=== PATIENT | male | born 1995 | race Caucasian/White ===

== ENCOUNTER 2018-01-16 10:37 | Emergency (ER) | payer SELFPAY ==
[2018-01-16] MEDS ORDERED: ONDANSETRON 4 MG TAB.RAPDIS PO ONE (10:51)
[2018-01-16] MEDS ORDERED: CEPHALEXIN 500 MG CAPSULE PO ONE (10:51)
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
[2018-01-16 14:07] VITALS: BP 124/72
== END 2018-01-16 14:06 | disposition home or self-care (01) ==
LOC: ER 10:37
DX: S02.31XA Fracture of orbital floor, right side, initial encounter for closed fracture (principal); Y04.2XXA Assault by strike against or bumped into by another person, initial encounter; Y93.89 Activity, other specified; L03.317 Cellulitis of buttock; Z91.030 Bee allergy status; Z91.048 Other nonmedicinal substance allergy status; F17.200 Nicotine dependence, unspecified, uncomplicated
CPT/HCPCS: 99284; 70450; 70486; S0119

== ENCOUNTER 2018-07-16 14:55 | Emergency (ER) | payer SELFPAY ==
[2018-07-16 15:02] VITALS: BP 140/86
--- NOTE | 2018-07-16 15:36 | RADIOLOGY REPORT (SQ) ---
EXAM DESCRIPTION: HAND LEFT 3 VIEWS COMPLETED DATE/TIME: 07/16/2018 3:26 pm REASON FOR STUDY: laceration with chainsaw COMPARISON: None. EXAM PARAMETERS: NUMBER OF VIEWS: Three views. TECHNIQUE: AP, lateral and oblique radiographic images acquired of the left hand. LIMITATIONS: None. FINDINGS: MINERALIZATION: Normal. BONES: No acute fracture or dislocation. No worrisome bone lesions. JOINTS: No effusions. SOFT TISSUES: No soft tissue swelling. No foreign body. OTHER: No other significant finding. IMPRESSION: NEGATIVE STUDY OF THE LEFT HAND. NO RADIOGRAPHIC EVIDENCE OF ACUTE INJURY. TECHNICAL DOCUMENTATION: JOB ID: [id number] [employer]- All Rights Reserved Reading location - IP/workstation name: [email or web address]
--- NOTE | 2018-07-16 15:42 | ER Document Report ---
HPI - HPI Pain Level: 5 Past Medical History - Social History Family History: Reviewed & Not Pertinent, CAD - grandmother, Other - brother with asthma. no hx sz. Renal/ Medical History: Denies: Hx Peritoneal Dialysis Psychiatric Medical History: Reports: Hx Attention Deficit Hyperactivity Disorder, Hx Bipolar Disorder, Hx Depression - Immunizations Immunizations up to date: Yes Hx Diphtheria, Pertussis, Tetanus Vaccination: Yes Vertical Provider Document - INFECTION CONTROL TRAVEL OUTSIDE OF THE [place]. IN LAST 30 DAYS: Yes Course - Vital Signs Vital signs: Temp Pulse Resp BP Pulse Ox 98.2 F 92 18 140/86 H 98 07/16/18 15:00 07/16/18 15:00 07/16/18 15:00 07/16/18 15:00 07/16/18 15:00 Discharge - Discharge Clinical Impression: Extensor tendon laceration of finger with open wound Condition: Good
[2018-07-16] MEDS ORDERED: DIPH/PERTUSS(ACELL)/TETANUS VAC/PF 0.5 ML SYR (>=10YO) IM ONE (16:04)
[2018-07-16] MEDS ORDERED: LIDOCAINE 1% INJ-PF (10 MG/ML) 30 ML SDV INJ ONE (16:07)
[2018-07-16] MEDS ORDERED: AMPICILLIN SOD/SULBACTAM 3 GM VIAL IV ONE (16:09)
--- NOTE | 2018-07-16 16:14 | ER Document Report ---
ED Medical Screen (RME) - General Chief Complaint: Laceration Stated Complaint: LEFT HAND LACERATION Time Seen by Provider: 07/16/18 15:42 Mode of Arrival: Ambulatory Information source: Patient Notes: 23-year-old male his left hand over the index MCP joint. He is unable to straighten the finger. It looks like he cut in to the tendon and possible joint capsule. I have notified Dr. Ding who will come see the patient and he wants me to give him Unasyn IV and I will keep the patient n.p.o. TRAVEL OUTSIDE OF THE [place]. IN LAST 30 DAYS: Yes - Related Data Allergies/Adverse Reactions: nickel [Nickel] Allergy (Unknown, Verified 07/16/18 14:59) bee stings Allergy (Intermediate, Uncoded 07/16/18 14:59) swelling Past Medical History - Social History Chew tobacco use (# tins/day): No Frequency of alcohol use: None Drug Abuse: Marijuana Renal/ Medical History: Denies: Hx Peritoneal Dialysis Psychiatric Medical History: Reports: Hx Attention Deficit Hyperactivity Disorder, Hx Bipolar Disorder, Hx Depression - Immunizations Immunizations up to date: Yes Hx Diphtheria, Pertussis, Tetanus Vaccination: Yes Physical Exam - Vital signs Vitals: Temp Pulse Resp BP Pulse Ox 98.2 F 92 18 140/86 H 98 07/16/18 15:00 07/16/18 15:00 07/16/18 15:00 07/16/18 15:00 07/16/18 15:00 Course - Vital Signs Vital signs: Temp Pulse Resp BP Pulse Ox 98.2 F 92 18 140/86 H 98 07/16/18 15:00 07/16/18 15:00 07/16/18 15:00 07/16/18 15:00 07/16/18 15:00 Doctor's Discharge - Discharge Clinical Impression: Extensor tendon laceration of finger with open wound Condition: Good
--- NOTE | 2018-07-16 17:43 | PDOC CONSULTATION ---
History of Present Illness Patient complains of: Left hand injury History of Present Illness: ANANT ZARCO is a 23 year old male who was [place] blocks [place] when he inadvertently cut his left hand with a chainsaw. Patient had notable bleeding and a open wound at the time of injury. He was brought to the emergency room where he was started on IV Unasyn, tetanus and given pain medication. Patient denies numbness but has notable pain with attempted motion. Current pain 12/18. Past Medical History Psychiatric Medical History: Reports: Attention Deficit Hyperactivity Disorder, Bipolar Disorder, Depression Social History Smoking Status: Current Every Day Smoker Frequency of Alcohol Use: Rare Hx Recreational Drug Use: Yes Drugs: Marijuana Hx Prescription Drug Abuse: No Family History Family History: Reviewed & Not Pertinent, CAD - grandmother, Other - brother with asthma. no hx sz. Parental Family History Reviewed: No Children Family History Reviewed: No Sibling(s) Family History Reviewed.: No Medication/Allergy Home Medications: Cephalexin Monohydrate [Keflex 500 mg Capsule] 500 mg PO Q6H 10 Days capsule Ibuprofen [Motrin 800 mg Tablet] 800 mg PO Q8H PRN #30 tab 01/16/18 Ondansetron [Zofran Odt] 4 mg PO Q6 PRN #30 tab.rapdis 01/16/18 Tramadol HCl [Ultram 50 mg Tablet] 50 mg PO ASDIR PRN #20 tablet 01/16/18 Allergies/Adverse Reactions: nickel [Nickel] Allergy (Unknown, Verified 07/16/18 14:59) bee stings Allergy (Intermediate, Uncoded 07/16/18 14:59) swelling Review of Systems Constitutional: ABSENT: chills, fever(s), headache(s), weight gain, weight loss Eyes: ABSENT: visual disturbances Ears: ABSENT: hearing changes Cardiovascular: ABSENT: chest pain, dyspnea on exertion, edema, orthropnea, palpitations Respiratory: ABSENT: cough, hemoptysis Gastrointestinal: ABSENT: abdominal pain, constipation, diarrhea, hematemesis, hematochezia, nausea, vomiting Genitourinary: ABSENT: dysuria, hematuria Musculoskeletal: PRESENT: as per HPI Integumentary: ABSENT: rash, wounds Neurological: ABSENT: abnormal gait, abnormal speech, confusion, dizziness, focal weakness, syncope Psychiatric: ABSENT: anxiety, depression, homidical ideation, suicidal ideation Endocrine: ABSENT: cold intolerance, heat intolerance, menstrual abnormalities, polydipsia, polyuria Hematologic/Lymphatic: ABSENT: easy bleeding, easy bruising, lymphadenopathy Physical Exam Vital Signs: Temp Pulse Resp BP Pulse Ox 98.2 F 92 18 140/86 H 98 07/16/18 15:00 07/16/18 15:00 07/16/18 15:00 07/16/18 15:00 07/16/18 15:00 Intake & Output 07/15/18 07/16/18 07/17/18 06:59 06:59 06:59 Weight 80.4 kg General appearance: PRESENT: no acute distress, well-developed, well-nourished Head exam: PRESENT: atraumatic, normocephalic Eye exam: PRESENT: conjunctiva pink, EOMI, PERRLA. ABSENT: scleral icterus Ear exam: PRESENT: normal external ear exam Mouth exam: PRESENT: moist, tongue midline Neck exam: PRESENT: full ROM. ABSENT: carotid bruit, JVD, lymphadenopathy, thyromegaly Cardiovascular exam: PRESENT: RRR. ABSENT: diastolic murmur, rubs, systolic murmur Pulses: PRESENT: normal dorsalis pedis pul, +2 pedal pulses bilateral Vascular exam: PRESENT: normal capillary refill GI/Abdominal exam: PRESENT: normal bowel sounds, soft. ABSENT: distended, guarding, mass, organolmegaly, rebound, tenderness Rectal exam: PRESENT: deferred Musculoskeletal exam: PRESENT: other - Left hand: Transverse wound extending from the radial aspect of the index MCP joint to the ulnar aspect. Exposed extensor tendon noted. No evidence of definitive fracture. Patient has 45 degrees extension lag of the MCP joint. Mild venous bleeding no pulsatile bleeding. Hypoesthesias on the dorsal aspect of the proximal and middle phalanx of the index finger. Cap refill less than 2 seconds. Intact DIP/PIP joint flexion. Neurological exam: PRESENT: alert, awake, oriented to person, oriented to place , oriented to time, oriented to situation, CN II-XII grossly intact. ABSENT: motor sensory deficit Psychiatric exam: PRESENT: appropriate affect, normal mood. ABSENT: homicidal ideation, suicidal ideation Skin exam: PRESENT: dry, intact, warm. ABSENT: cyanosis, rash Results Impressions: Hand X-Ray 07/16/18 15:00 IMPRESSION: NEGATIVE STUDY OF THE LEFT HAND. NO RADIOGRAPHIC EVIDENCE OF ACUTE INJURY. Status: Image reviewed by me - I have reviewed patient's radiographs which demonstrate soft tissue injury along the dorsum of the hand no evidence of fracture or joint abnormality Assessment & Plan - Diagnosis (1) Extensor tendon laceration of finger with open wound Qualifiers: Encounter type: initial encounter Qualified Code(s): S56.429A - Laceration of extensor muscle, fascia and tendon of unspecified finger at forearm level, initial encounter; S61.209A - Unspecified open wound of unspecified finger without damage to nail, initial encounter; S61.209A - Unspecified open wound of unspecified finger without damage to nail, initial encounter Is this a current diagnosis for this admission?: Yes Plan: Patient sustained a index finger MCP joint extensor tendon laceration zone V. There is no evidence of open fracture but I have recommended irrigation debridement of the index finger. Also given the amount of exposure we will proceed with definitive treatment of the extensor tendon at bedside today. Emergency room staff will block the patient and irrigate and debride the wound. I was then repaired the extensor tendon. Postoperative expectations and rehabilitation have been explained to the patient he has verbalized understanding consented for the surgical procedure. See procedure note for details. Patient will continue on Augmentin for bacterial prophylaxis and follow-up with me in 7 days on 07/22/18 for operative recheck.
--- NOTE | 2018-07-16 18:51 | Operative Report ---
Operative Report DATE OF SURGERY: 07/16/18 PREOPERATIVE DIAGNOSIS: Left hand laceration with extensor tendon involvement POSTOPERATIVE DIAGNOSIS: Same OPERATION: Repair of left hand index MCP joint extensor tendon zone V SURGEON: LIANNA MONROE ANESTHESIA: Local COMPLICATIONS: None ESTIMATED BLOOD LOSS: Minimal PROCEDURE: Procedure in detail: Patient was seen in the emergency room with a laceration of his left index finger after a chainsaw incident. The emergency room then performed a local block and copiously irrigated the wound with saline and Betadine. The hand was then prepped with Betadine. Once patient was asked anesthetized a blood pressure cuff pumped to 180 mmHg was placed. Any nonviable tissue including skin was then excised. The joint was irrigated with normal saline. No evidence of bone involvement. Nonviable soft tissue including small amount of synovium was excised. The extensor tendon was then evaluated there was a irregular laceration including the entire extensor tendon of the index finger no involvement of the adjacent digits. The finger was placed in full extension and a running Silverskiold suture with 4-0 fiber wire was utilized. At completion patient was able to fully extend his IP and MP joints. The flexor tendon repair was then reinforced with [id number] 3-0 Ethibond suture x3. Wound was once again irrigated with normal saline. Skin was closed with interrupted 4-0 nylon suture. Patient tolerated procedure well. Was placed in a radial gutter splint maintaining MCP joint hyperextension of 15 degrees with the DIP joints free. Postoperative plan: Patient will follow-up in the office in 1 week for wound recheck. Will require occupational therapy for radial gutter thermoplastic splint as per zone V extensor tendon protocol
--- NOTE | 2018-07-16 18:57 | ER Document Report ---
ED Hand/Wrist Injury - General Chief Complaint: Laceration Stated Complaint: LEFT HAND LACERATION Time Seen by Provider: 07/16/18 15:42 Mode of Arrival: Ambulatory Information source: Patient Notes: 23-year-old male presented to ED with laceration to the left hand just proximal to the second and third finger. He is unable to straighten the index finger due to a laceration to the extensor tendon. Dr. Ding was consulted by Rose Reyes NP before turning the patient over to mo. Dr. Ding did come to the bedside and saw the patient. He states he will return and suture the laceration and tendon. Patient has been treated with Unasyn IV and will be discharged home with prescriptions for Augmentin and Percocet per Dr. Ding's request. TRAVEL OUTSIDE OF THE [place] IN LAST 30 DAYS: Yes - HPI Injury to: Hand, Index finger, Middle finger Where: Outdoors Timing: Still present Quality of pain: Sharp, Throbbing Severity: Severe Context: Laceration - Related Data Allergies/Adverse Reactions: nickel [Nickel] Allergy (Unknown, Verified 07/16/18 14:59) bee stings Allergy (Intermediate, Uncoded 07/16/18 14:59) swelling Past Medical History - General Information source: Patient - Social History Smoking Status: Current Every Day Smoker Chew tobacco use (# tins/day): No Frequency of alcohol use: None Drug Abuse: Marijuana Lives with: Family Family History: Reviewed & Not Pertinent, CAD - grandmother, Other - brother with asthma. no hx sz. Patient has suicidal ideation: No Patient has homicidal ideation: No - Past Medical History Cardiac Medical History: Reports: None Pulmonary Medical History: Reports: None EENT Medical History: Reports: None Neurological Medical History: Reports: None Endocrine Medical History: Reports: None Renal/ Medical History: Reports: None Malignancy Medical History: Reports None GI Medical History: Reports: None Musculoskeletal Medical History: Reports Hx Musculoskeletal Trauma - extensor tendon laceration of finger with open wound Skin Medical History: Reports None Psychiatric Medical History: Reports: Hx Attention Deficit Hyperactivity Disorder, Hx Bipolar Disorder, Hx Depression Traumatic Medical History: Reports: None Infectious Medical History: Reports: None - Immunizations Immunizations up to date: Yes Hx Diphtheria, Pertussis, Tetanus Vaccination: Yes - 07/16/18 Review of Systems - Review of Systems Constitutional: No symptoms reported EENT: No symptoms reported Cardiovascular: No symptoms reported Respiratory: No symptoms reported Gastrointestinal: No symptoms reported Genitourinary: No symptoms reported Male Genitourinary: No symptoms reported Musculoskeletal: No symptoms reported Skin: Other - laceration to left hand from chain saw injury Hematologic/Lymphatic: No symptoms reported Neurological/Psychological: No symptoms reported -: Yes All other systems reviewed and negative Physical Exam - Vital signs Vitals: Temp Pulse Resp BP Pulse Ox 98.2 F 92 18 140/86 H 98 07/16/18 15:00 07/16/18 15:00 07/16/18 15:00 07/16/18 15:00 07/16/18 15:00 Interpretation: Normal - General General appearance: Appears well, Alert - HEENT Head: Normocephalic, Atraumatic Eyes: Normal Pupils: PERRL - Respiratory Respiratory status: No respiratory distress Chest status: Nontender Breath sounds: Normal Chest palpation: Normal - Cardiovascular Rhythm: Regular Heart sounds: Normal auscultation Murmur: No - Abdominal Inspection: Normal Distension: No distension Bowel sounds: Normal Tenderness: Nontender Organomegaly: No organomegaly - Back Back: Normal, Nontender - Extremities General upper extremity: Normal color, Normal temperature General lower extremity: Normal inspection, Nontender, Normal color, Normal ROM , Normal temperature, Normal weight bearing. No: Ignacio's sign Hand: Laceration - left hand just proximal to 2nd and 3rd finger involving the tendon, No evidence of human bite, No evidence of FB - Neurological Neuro grossly intact: Yes Cognition: Normal Orientation: AAOx4 Carmine Coma Scale Eye Opening: Spontaneous Carmine Coma Scale Verbal: Oriented [place] Coma Scale Motor: Obeys Commands Carmine Coma Scale Total: 15 Speech: Normal Motor strength normal: LUE, RUE, LLE, RLE Sensory: Normal - Psychological Associated symptoms: Normal affect, Normal mood - Skin Skin Temperature: Warm Skin Moisture: Dry Skin Color: Normal Skin irregularity: Laceration Location of irregularity: Extremities - left hand just proximal to 2nd and 3rd finger Character of irregularity: Linear Irregularity with: Swelling, Tenderness Course - Re-evaluation Re-evalutation: 07/16/18 19:37 Dr. Ding was in to see and suture the lacerated tendons to the second and third finger. After he sutured the lacerations, PA student Shanita Johnston placed external sutures. A radial gutter splint was applied and patient was given a sling to to keep his arm elevated while he is walking. Patient has been instructed to elevate his arm at all times. Patient will be discharged home. He has been instructed to follow-up with Dr. pineda on Sunday at 9 AM. Patient has been instructed and has been given the name and number and address for the follow-up. - Vital Signs Vital signs: Temp Pulse Resp BP Pulse Ox 98.2 F 92 18 140/86 H 98 07/16/18 15:00 07/16/18 15:00 07/16/18 15:00 07/16/18 15:00 07/16/18 15:00 - Diagnostic Test Radiology reviewed: Image reviewed, Reports reviewed Discharge - Discharge Clinical Impression: Extensor tendon laceration of finger with open wound Qualifiers: Encounter type: initial encounter Qualified Code(s): S56.429A - Laceration of extensor muscle, fascia and tendon of unspecified finger at forearm level, initial encounter Condition: Good Disposition: HOME, SELF-CARE Additional Instructions: LACERATION CARE: Your laceration has been sutured to keep the skin edges aligned during healing. The time of suture removal depends on the nature and location of your cut. Please follow the care instructions the doctor has outlined for you and return for further care, according to the schedule you've been given. Keep the wound and dressing clean. Unless you were told otherwise, you may shower daily, blotting the wound dry with a clean, unused towel. At other times, If the dressing gets wet or blood soaked, remove it and blot the wound dry, then reapply a new dressing. Unless you were instructed otherwise, dressings should be changed at least daily. If any signs of infection occur (swelling, redness, drainage, increasing tenderness, red streaks, tender lumps in the armpit or groin above the laceration, or fever), see the doctor immediately. You have a laceration care today. It has been repaired by the surgeon. Please do not move the finger at all as he instructed you. Please wear the splint as he instructed to. You are to follow-up with Dr Ding at 9 am on Sunday as instructed SOAP CLEANSING: Gently wash the wound daily using a mild soap (like Ivory, Phisoderm, Neutrogena). Use warm water, rubbing gently until all debris, ooze, and crusting have been washed from the wound. Allow to dry briefly (about 10 minutes) after cleaning. Repeat this cleansing at least three times a day for the first two days and then once or twice a day. TETANUS IMMUNIZATION GIVEN: You have been given an immunization against tetanus. Please record this in your records. In general, a booster is needed only once every 10 years. The tetanus shot protects against tetanus or "lockjaw," which is a complication of certain wound infections (the tetanus shot cannot protect against the actual infection). The immunization site may become warm and red due to local reaction. If this occurs, apply warm compresses and take aspirin or ibuprofen to reduce inflammation and discomfort. Return for evaluation if the reaction becomes severe. FOLLOW-UP CARE: Return to the emergency room immediately for any redness swelling fever or drainage to the site. Follow-up with Dr. pineda on Sunday at 9 AM as he instructed you. To facilitate a timely removal of your sutures, you may return to the Emergency Department at [facility]. You do not need to call for an appointment, but the best time to come in for suture removal is early in the morning. If you have been referred to another physician for follow-up care, call that physicians office for an appointment as you were instructed. If you experience a significant change in your laceration, or if you are concerned there may be an infection (swelling, redness, drainage, increasing tenderness, red streaks, tender lumps in the armpit or groin above the laceration, or fever) , return to the Emergency Department immediately re-evaluation. Prescriptions: Oxycodone HCl/Acetaminophen [Percocet 5-325 mg Tablet] 1 tab PO Q6HP PRN #8 tablet PRN Reason: Amox Tr/Potassium Clavulanate [Augmentin 875-125 Tablet] 1 tab PO BID 10 Days tablet Forms: Elevated Blood Pressure, Special Work Note Referrals: LIANNA DING DO [ACTIVE STAFF] - 07/22/18 9:00 am
== END 2018-07-16 20:01 | disposition home or self-care (01) ==
LOC: ER 14:55
PROC: 0LQ80ZZ Repair Left Hand Tendon, Open Approach (ICD-10-PCS; principal; 2018-07-16)
DX: S56.429A Laceration of extensor muscle, fascia and tendon of unspecified finger at forearm level, initial encounter (principal); R40.2412 Glasgow coma scale score 13-15, at arrival to emergency department; Z23 Encounter for immunization; F90.9 Attention-deficit hyperactivity disorder, unspecified type; F31.9 Bipolar disorder, unspecified; W29.3XXA Contact with powered garden and outdoor hand tools and machinery, initial encounter; Y93.9 Activity, unspecified; Y92.9 Unspecified place or not applicable; Y99.9 Unspecified external cause status; Z91.030 Bee allergy status; F17.200 Nicotine dependence, unspecified, uncomplicated
CPT/HCPCS: 99284; 90471; 73130; 90715; 26410; J0295; J3490